=== PATIENT | male | born 1970 | race Caucasian/White ===

== ENCOUNTER 2019-02-08 05:42 | Outpatient (CLI) | payer BC ==
[~2019-02-08] VITALS: Ht 180 cm; Wt 113.0 kg
[~2019-02-08 05:42] MED LIST: CLIN300C3 PO
[2019-02-08] MEDS ORDERED: FEXO1TAB43 PO (09:03)
== END 2019-02-08 09:22 | disposition home or self-care (01) ==
LOC: PREOP 05:42
PROVIDERS: ATTEND Surgery
DX: Z01.818 Encounter for other preprocedural examination (principal)

== ENCOUNTER 2019-02-14 10:58 | Day surgery (SDC) | payer BC ==
--- NOTE | 2019-02-09 11:32 | HISTORY AND PHYSICAL ---
DATE OF SERVICE: PROCEDURE DATE: 02/14/2019. ATTENDING PHYSICIAN: Dr. Braden. HISTORY OF PRESENT ILLNESS: The patient is a 49-year-old male who was referred over to us in need of a screening colonoscopy. The patient reports at this point in his life he has never had one done before. He denies any blood in the stool as well as no family history of colon cancer. He denies any diarrhea, constipation or any abdominal pain. PAST MEDICAL HISTORY: None. PAST SURGICAL HISTORY: [place] teeth removed. ALLERGIES: No known drug allergies. MEDICATIONS: Kayla-D p.r.n. SOCIAL HISTORY: Previous for smoke of 1 pack per day for 5 years, quit in 1990. Rare for alcohol. FAMILY HISTORY: Mother, multiple sclerosis. Father with lung cancer, myocardial infarction at 60 years of age. The child, type 1 diabetes. VITAL SIGNS: Stable. Current weight is 253.9 at 5 feet 11 inches. REVIEW OF SYSTEMS: Well-nourished male in no acute distress. He is not experiencing any shortness of breath or difficulty breathing. No chest pain, palpitations or diaphoresis. No nausea, vomiting or abdominal pain. No diarrhea or constipation. No red blood per rectum. No dark tarry stools. No fever or chills. No recent inadvertent weight loss. All other review of systems negative. PHYSICAL EXAMINATION: CHEST: Clear. Good breath sounds bilaterally. HEART: Regular, no murmurs. EXTREMITIES: No lower extremity edema. Negative Homans sign. HEENT: Scleral icterus. NECK: No cervical lymphadenopathy. ABDOMEN: Soft, nontender, nondistended. SKIN: Warm, dry and pink. NEUROLOGIC: Awake, alert and oriented x3. ASSESSMENT AND PLAN: A 49-year-old male who is in need of a screening colonoscopy. The risks and benefits of the procedure as well as procedure and home care instructions were explained to the patient. The patient verbalized understanding of instructions and agrees to proceed as planned. At this time, we will proceed with scheduling the patient for a screening colonoscopy. Job ID: [id number] DocumentID: [id number] Dictated Date: 02/05/2019 17:29:38 Day Light Relief Operator Date: 02/05/2019 18:49:48 Dictated By: KHANH MORFIN APRN
[~2019-02-14] VITALS: Ht 180 cm; Wt 113.0 kg
[2019-02-14] VITALS (11 sets, daily range): BP systolic 114–136; BP diastolic 67–84
[~2019-02-14 10:58] MED LIST changes: +FEXO1TAB43 PO
[2019-02-14] MEDS ORDERED: NS IV 500 ML 500 ML ONE (11:06)
[2019-02-14] MEDS ORDERED: NS IV 500 ML 500 ML IV PRN (11:07)
--- NOTE | 2019-02-14 11:07 | Conscious Sedation/ASA ---
Conscious Sedation Pre-Proced Time 11:05 ASA Score 2 For ASA 3 and 4: Consider anesthesia and medical clearance. Also, for patients with a history of failed moderate sedation consider anesthesia. Airway Lungs Heart ASA score ASA 1: a normal healthy patient ASA 2: a patient with a mild systemic disease (mid diabetes, controlled hypertension, obesity ASA 3: a patient with a severe systemic disease that limits activity (angina, COPD, prior Myocardial infarction) ASA 4: a patient with an incapacitating disease that is a constant threat to life (CHF, renal failure) ASA 5: a moribund patient not expected to survive 24 hrs. (ruptured aneurysm) ASA 6: a declared brain- patient whose organs are being harvested. For emergent operations, add the letter E after the classification Mallampati Classification Grade 2 Sedation Plan Analgesia, Amnesia, Plan communicated to team members, Discussed options with patient/fam, Discussed risks with patient/fam The patient is an appropriate candidate to undergo the planned procedure, sedation, and anesthesia. The patient immediately re-assessed prior to indication. FAUSTO JANE MD Feb 14, 2019 11:07 POS
--- NOTE | 2019-02-14 11:07 | Progress Note-Pre Operative ---
Pre-Operative Progress Note H&P Reviewed The H&P was reviewed, patient examined and no changes noted. Date Seen by Provider: Feb 14, 2019 Time Seen by Provider: 11:05 Date H&P Reviewed: Feb 14, 2019 Time H&P Reviewed: 11:05 Pre-Operative Diagnosis: screening FAUSTO Kitchen MD Feb 14, 2019 11:07 POS
--- NOTE | 2019-02-14 11:12 | Discharge Inst-Surgical ---
D/C Lap Instructions-BUCK Follow Up Activity as tolerated High Fiber Diet 25g or more per day Avoid Alcohol, Caffeine, Spicy Linda and Acid foods. Drink 64 fluid oz or more of fluids per day. Symptoms to Report: Fever over 101 degree F, Nausea/Vomiting If any problems/questions: Contact your physician or go to Emergency Room FAUSTO JANE MD Feb 14, 2019 11:12 POS
[2019-02-14] MEDS ORDERED: LIDOCAINE JELLY 2% 6 ML SYRINGE MM PRN (11:15)
[2019-02-14] MEDS ORDERED: ONDANSETRON 4 MG/2 ML (SDV) Z0FRAN IVP PRN (11:15)
[2019-02-14] MEDS ORDERED: fentaNYL INJECTION 100 MCG/2 ML AMP IVP ONE (11:15)
[2019-02-14] MEDS ORDERED: ACETAMINOPHEN 325 MG TABLET PO PRN (11:15)
[2019-02-14] MEDS ORDERED: HYDROcodone/APAP 5 MG/325 MG (LORTAB) TAB PO PRN (11:15)
[2019-02-14] MEDS ORDERED: morphine INJ 10 MG/ML 1ML (SYR OR VIAL) IVP PRN ×2 (11:15)
[2019-02-14] MEDS ORDERED: LIDOCAINE JELLY 2% 6 ML SYRINGE ONE (12:50)
[2019-02-14] MEDS ORDERED: fentaNYL INJECTION 100 MCG/2 ML AMP ONE (12:51)
[2019-02-14] MEDS ORDERED: MIDAZOLAM 5 MG/5 ML (VERSED) VIAL ONE ×2 (12:51)
[2019-02-14] MEDS: MIDAZOLAM 5 MG/5 ML (VERSED) VIAL IV PRN ×3 (12:52→13:12)
--- NOTE | 2019-02-14 13:23 | Progress Note-Post Operative ---
Post-Operative Progess Note Surgeon (s)/Superintendent [employer] (s) Surgeon FAUSTO JNAE MD [employer]: none Pre-Operative Diagnosis screening colo Post-Operative Diagnosis mild chronic sigmoid diverticulosis. Procedure & Operative Findings Date of Procedure 02/14/19 Procedure Performed/Findings colonoscopy Anesthesia Type cs Estimated Blood Loss Estimated blood loss (mL): minimal Specimens/Packing Specimens Removed none FAUSTO JANE MD Feb 14, 2019 13:23 POS
--- NOTE | 2019-02-14 17:57 | OPERATIVE REPORT ---
DATE OF SERVICE: 02/14/2019 ATTENDING PRIMARY CARE PHYSICIAN: Guevara Braden MD PREOPERATIVE DIAGNOSIS: Screening colonoscopy. POSTOPERATIVE DIAGNOSIS: Mild sigmoid diverticulosis. PROCEDURE: Colonoscopy. SURGEON: Fausto Jane MD ANESTHESIA: Conscious sedation. ESTIMATED BLOOD LOSS: Minimal. FINDINGS: Same as postoperative diagnoses. DISPOSITION: The patient tolerated the procedure well. INDICATIONS: The patient is a 49-year-old male referred over to us for screening colonoscopy. He has not had a colonoscopy up to this point in his life. He states that he is otherwise doing well, does not report any major issues with diarrhea nor constipation as well as no red blood per rectum nor any dark tarry stools. He also does not report any family history of colon cancer. DESCRIPTION OF PROCEDURE: The patient was brought to the endoscopy suite, laid in left lateral decubitus position. After adequate IV pain and sedative medications and conscious sedation anesthesia, a digital rectal examination was performed. No significant hemorrhoids identified. Normal sphincter tone was felt and no palpable masses. Prostate gland was palpable and appeared normal. The endoscope was then intubated into the anus and the rectum gently insufflated. The endoscope was then advanced through the valves of [place] with no polyps or any neoplasms identified. Through the sigmoid colon, a very mild or early diverticulosis that was identified. There were no mucosal inflammatory changes to indicate any diverticulitis. The endoscope was then advanced to the remainder of the descending, transverse and ascending colon to the cecum. These segments were normal. There were no polyps or any neoplasms identified throughout the colon or rectum. The endoscope was then slowly withdrawn while taking a second look and suctioning of residual air with no additional findings. The patient tolerated the procedure well. We will recommend continued medical management with a high fiber diet with 30 grams of fiber daily as well as significant amounts of water to promote soft stools on a daily basis. He does not need another colonoscopy for another 10 years. Job ID: [id number] DocumentID: [id number] Dictated Date: 02/14/2019 13:23:50 Pest Control Supervisor Date: 02/14/2019 17:57:15 Dictated By: FAUSTO JANE MD
== END 2019-02-14 14:05 | disposition home or self-care (01) ==
LOC: ENDO 10:58
PROVIDERS: ATTEND Surgery
DX: Z12.11 Encounter for screening for malignant neoplasm of colon (principal); K57.30 Diverticulosis of large intestine without perforation or abscess without bleeding; Z87.891 Personal history of nicotine dependence; Z80.1 Family history of malignant neoplasm of trachea, bronchus and lung; Z82.49 Family history of ischemic heart disease and other diseases of the circulatory system; Z83.3 Family history of diabetes mellitus

== ENCOUNTER → 2020-07-30 | Outpatient (CLI) | payer BC ==
--- NOTE | 2020-07-30 10:44 | Diagnostic Imaging Report ---
INDICATION: SPRAIN THUMB METACARPOPHALANGEAL JOINT ULNAR COLLATERAL LIGAMENT TECHNIQUE: Three views of the RIGHT hand. CORRELATION STUDY: None FINDINGS: There is normal alignment and appearance of the osseous structures of the hand. The joint spaces are maintained. There is no acute fracture. Soft tissues are unremarkable. IMPRESSION: 1. Negative for acute bony abnormality of the hand. If assessment for potential underlying ligamentous/soft tissue injury, MRI would be recommended. Dictated by: Dictated on workstation # [id number]
== END ==
LOC: ORTHO 10:07
PROVIDERS: ATTEND Orthopaedic Surgery
DX: M65.311 Trigger thumb, right thumb (principal)
CPT/HCPCS: 20551; 73130; G0463

== ENCOUNTER → 2020-10-20 | Outpatient (CLI) | payer BC | LOC: ORTHO 08:48 | PROVIDERS: ATTEND Orthopaedic Surgery | DX: M77.01 Medial epicondylitis, right elbow (principal) | CPT/HCPCS: 20551; G0463 ==

== ENCOUNTER → 2021-01-05 | Outpatient (CLI) | payer BC | LOC: ORTHO 09:15 | PROVIDERS: ATTEND Orthopaedic Surgery | DX: M79.644 Pain in right finger(s) (principal); M77.01 Medial epicondylitis, right elbow | CPT/HCPCS: 20551; G0463 ==

== ENCOUNTER → 2021-10-30 | Outpatient (CLI) | payer BC ==
--- NOTE | 2021-10-30 12:22 | Diagnostic Imaging Report ---
INDICATION: Known injuries. Pain. EXAMINATION: Right elbow 10/30/2021. FINDINGS: 3 views of the elbow. FINDINGS: There is no evidence for an acute fracture or dislocation. The joint spaces are well maintained. There is no significant soft tissue swelling. IMPRESSION: No acute process. Dictated by: Dictated on workstation # [id number]
== END ==
LOC: ORTHO 10:22
PROVIDERS: ATTEND Orthopaedic Surgery
DX: M77.11 Lateral epicondylitis, right elbow (principal); M77.01 Medial epicondylitis, right elbow
CPT/HCPCS: 20605; 73080; G0463

== ENCOUNTER → 2022-10-20 | Outpatient (CLI) | payer BC | LOC: ORTHO 08:49 | PROVIDERS: ATTEND Orthopaedic Surgery | DX: M77.11 Lateral epicondylitis, right elbow (principal) | CPT/HCPCS: 20551 ==

== ENCOUNTER → 2023-01-20 | Outpatient (CLI) | payer BC | LOC: ORTHO 08:24 | PROVIDERS: ATTEND Orthopaedic Surgery | DX: M77.01 Medial epicondylitis, right elbow (principal); M77.11 Lateral epicondylitis, right elbow | CPT/HCPCS: 20551 ==